=== PATIENT | male | born 1950 ===

== ENCOUNTER 2019-06-17 12:24 | Emergency (ER) | payer MEDICARE, OTHER ==
[2019-06-17] MEDS ORDERED: NORMAL SALINE 1,000 ML IV.SOLN IV ONE (14:50)
[2019-06-17] MEDS ORDERED: ONDANSETRON HCL/PF 4 MG/ 2ML VIAL ONE (14:50)
[2019-06-17] MEDS ORDERED: KETOROLAC TROMETHAMINE 30 MG/1ML VIAL ONE (14:50)
[2019-06-29 13:07] LABS: BASOPHILS % 0.4 % (0.0-1.5); NEUTROPHILS # 10.7 # k/uL (1.4-7.7); eGFR (Non-African) 56
--- NOTE | 2019-06-29 16:17 | Diagnostic Imaging Report ---
GA GUILLEN [facility] [id number] [facility] [address] [address] Report Submission Date: Jun 17, 2019 2:33:51 PM CDT Patient Study Name: JC TOWNSEND Date: Jun 17, 2019 2:04:09 PM CDT Modality Type: CT\SR Gender: M Description: CT A/P W/ CONTRAST : 50 Institution: [facility] Physician: GA GUILLEN CT ABDOMEN WITH CONTRAST CT PELVIS WITH CONTRAST INDICATION: REASON: LEFT LOWER QUAD PAIN HISTORY: PATIENT STATES PAIN IN LOWER STOMACH THAT REACHES AROUND TO BACK, PAIN IS WORSE ON THE LEFT SIDE, NO ABDOMINAL SURGERIES (Hx) / LLQ PAIN ------ Note time : 06/17/2019 2:19:08 PM User : Shirley Quintero REASON: LEFT LOWER QUAD PAIN HISTORY: PATIENT STATES PAIN IN LOWER STOMACH THAT REACHES AROUND TO BACK, PAIN IS WORSE ON THE LEFT SIDE, NO ABDOMINAL SURGERIES (DICOM Hx) (DICOM Hx) TECHNIQUE: 5 mm images through the abdomen and pelvis with oral and intravenous contrast. COMPARISON:None FINDINGS: CT ABDOMEN: The lung bases are clear. There is a hiatal hernia. Diffuse fatty infiltration to the liver is demonstrated. The liver is enlarged, measuring at least 20.0 cm. The gallbladder is unremarkable. The spleen, pancreas,and adrenal glands show no acute abnormality. Moderate left sided hydroureteronephrosis is present from a calcified stone in the distal left ureter measuring 2.7 mm on image 78. Left perinephric stranding is demonstrated. There is a presumed 3.8 mm calcified stone in the mid portion right kidney. No right sided obstructive uropathy is identified. There is no bowel obstruction, free air or free fluid. Atherosclerotic calcification to the abdominal aorta is present. CT PELVIS: The appendix is normal. There is no free fluid. The urinary bladder is partially distended with mild circumferential wall thickening measuring up to 9 mm. This could represent some mild degree of cystitis. There are multilevel degenerative changes of the spine. IMPRESSION: There is a 2.7 mm distal left ureteral stone with moderate obstructive uropathy Fatty and enlarged liver Nonobstructing right renal calcification Mild urinary bladder wall thickening could represent cystitis Electronically signed on Jun 17, 2019 2:33:51 PM CDT by: Joshua ANTON
== END 2019-06-17 16:29 | disposition home or self-care (01) ==
LOC: ED 12:24
DX: N20.1 Calculus of ureter (principal)
CPT/HCPCS: 74177; 80053; 83690; 85025; 99283; 99284; J1885; J2405; J7030; Q9967; S1016